=== PATIENT | female | born 1935 | race Caucasian/White ===

== ENCOUNTER 2017-09-08 13:30 | Outpatient (CLI) | payer MEDICARE ==
--- NOTE | 2017-09-08 13:56 | RAD ---
CHEST TWO VIEWS: HISTORY: Dyspnea. COMPARISON: 03/11/2017 FINDINGS: The cardiac silhouette and pulmonary vasculature are unremarkable. The lungs remain hyperinflated. Linear atelectasis projects over the right middle lobe. A small amount of fluid is also visible with in the minor fissure on the right. The mediastinum is midline with aortic calcification and a dual-l ead left subclavian cardiac pacer. Calcified granulomata are consistent with healed granulomatous di sease. IMPRESSION: 1. Chronic obstructive pulmonary disease. 2. Worsening bibasilar atelectasis. 3. Atherosclerosis. POS: SHEELAH
== END 2017-09-08 13:31 | disposition home or self-care (01) ==
LOC: RAD 13:30
PROVIDERS: ATTEND Internal Medicine Pulmonary Disease
DX: R06.00 Dyspnea, unspecified (principal); J44.9 Chronic obstructive pulmonary disease, unspecified; J98.11 Atelectasis; I70.90 Unspecified atherosclerosis
CPT/HCPCS: 71046

== ENCOUNTER 2017-12-21 09:52 | Outpatient (CLI) | payer MEDICARE ==
--- NOTE | 2017-12-21 10:29 | ULT ---
RIGHT LOWER EXTREMITY VENOUS ULTRASOUND: Date: 12/21/17 HISTORY: Right lower extremity edema. TECHNIQUE: Multiplanar Grant scale and color Doppler images were obtained in a right lower extremity venous ultra sound. Spectral analysis of the Doppler waveforms were performed. FINDINGS: The right common femoral vein, profunda femoral vein, superficial femoral vein, and popliteal vein ar e normal in appearance without visible thrombus. These vessels demonstrate normal compression, flow, and augmentation. The right posterior tibial vein and greater saphenous vein are also patent. IMPRESSION: No evidence of deep venous thrombosis. POS: MARGA
== END 2017-12-21 09:53 | disposition home or self-care (01) ==
LOC: SCSULT 09:52
PROVIDERS: ATTEND Family Medicine
DX: R60.9 Edema, unspecified (principal)

== ENCOUNTER 2022-08-08 09:01 | Outpatient (CLI) | payer MEDICARE | END 2022-08-08 09:02 | disposition home or self-care (01) | LOC: RAD 09:01 | PROVIDERS: ATTEND Internal Medicine Critical Care Medicine | DX: R06.09 Other forms of dyspnea (principal); J44.9 Chronic obstructive pulmonary disease, unspecified | CPT/HCPCS: 71046 ==